=== PATIENT | male | born 2005 | race Hispanic/Latino ===

== ENCOUNTER 2024-08-20 23:19 | Emergency (ER) | payer SELFPAY ==
[~2024-08-20] VITALS: Ht 175.3 cm; Wt 97.5 kg
[2024-08-20 23:20] VITALS: BP 145/91; PULSE 88; RESP 16; TEMP 98.4
--- NOTE | 2024-08-21 00:13 | NUR ---
PT SITTING IN LOBBY IN FRONT OF TRIAGE 1, INTERACTING WELL WITH FAMILY, ON PHONE. NO ACUTE DISTRESS OBSERVED, GOOD CHEST RISE AND FALL
[2024-08-21] MEDS ORDERED: ketOROlac 15MG/ML VIAL (15MG/ML) IV STA (00:28)
--- NOTE | 2024-08-21 01:11 | ERN ---
ED Note History of Present Illness Stated Complaint: BACK PAIN, FALL Chief Complaint: Mechanical Fall Time Seen by MD: 23:35 Time Seen by Midlevel: 23:39 Dictation: 19-YEAR-OLD MALE WITH NO PAST MEDICAL HISTORY COMING IN STATUS POST GROUND LEVEL FALL TWO WEEKS AGO AND NOW COMPLAINING OF LOWER BACK PAIN. DENIES ANY INCONTINENCE, SADDLE PARESTHESIAS, OR UNILATERAL WEAKNESS OF AN LOWER EXTREMITIES. Allergies: Coded Allergies: No Known Allergies (Unverified Allergy, Unknown, 08/20/24) Past Medical History Past Medical History: No Pertinent History Surgical History: Other Surgical History Other: RT LUNG Review of System Dictation CONSTITUTIONAL: NEGATIVE FOR FEVER,CHILLS, AND WEIGHT LOSS EYES: NEGATIVE FOR INJURY, PAIN,REDNESS, AND DISCHARGE ENT: NEGATIVE FOR INJURY,PAIN OR SWELLING CARDIOVASCULAR: NEGATIVE FOR CHEST PAIN, PALPITATIONS, AND EDEMA RESPIRATORY: NEGATIVE FOR SHORTNESS OF BREATH, COUGH, AND WHEEZING, ABDOMEN/GI: NEGATIVE FOR ABDOMINAL PAIN, NAUSEA, VOMITING, DIARRHEA, AND CONSTIPATION BACK: NEGATIVE FOR INJURY AND PAIN : NEGATIVE FOR INJURY, BLEEDING AND DISCHARGE MS/EXTREMITY: NEGATIVE FOR INJURY AND DEFORMITY, COMPLAINING OF LOWER BACK PAIN SKIN: NEGATIVE FOR RASH, AND DISCOLORATION NEURO: NEGATIVE FOR HEADACHE, WEAKNESS, NUMBNESS, TINGLING, AND SEIZURE PSYCH: NEGATIVE FOR SUICIDE IDEATION, HOMICIDAL IDEATION, AND HALLUCINATIONS Review of Systems: was completed Initial Vital Sign VS Vital Signs Date Time Temp Pulse Resp B/P (MAP) Pulse Ox O2 Delivery O2 Flow Rate FiO2 08/20/24 23:20 98.4 88 16 145/91 100 Room Air Physical Exam Dictation GENERAL: AWAKE, ALERT, NAD HEAD/FACE: NORMOCEPHALIC, ATRAUMATIC EYES: PERRL, EOMI, VISION AT BASELINE ENT: ORAL CAVITY CLEAR, TMS CLEAR, NO SIGNS OF INFECTION NECK: TRACHEA MIDLINE, SUPPLE, NO NUCHAL RIGIDITY CARDIOVASCULAR: RRR, NORMAL S1/S2, NO MRGS, NO JVD RESPIRATORY: CTAB, NO RESPIRATORY DISTRESS, NO RALES OR WHEEZES ABDOMEN: SOFT, NON-TENDER, NON-DISTENDED, NORMAL BOWEL SOUNDS, NO GUARDING OR REBOUND. SKIN: WARM, DRY, NORMAL TURGOR, NO RASH MS/EXTREMITY: PULSES EQUAL, NO CYANOSIS, NEUROVASCULAR INTACT, FROM NEURO: COAX4, GCS 15, STRENGTH 5/5, CN 2-12 INTACT, NORMAL CEREBELLAR EXAM, NORMAL GAIT, PSYCH: NORMAL BEHAVIOR, MOOD, AND AFFECT NORMAL ED Course ED Course Orders Procedure Category Date Status Time Lumbar Spine 2-3vws RAD 08/21/24 Taken 00:28 Methocarbamol PHA 08/21/24 Complete (Methocarbamol) 00:28 Ketorolac PHA 08/21/24 Complete Tromethamine 15mg/Ml 00:28 Acetaminophen 500mg PHA 08/21/24 Complete Tab (Tylenol 500mg T 00:28 Current Medications Medications (Trade) Dose Ordered Sig/Donny Route PRN Reason Start Time Stop Time Status Last Admin Dose Admin Acetaminophen (TYLenol 500MG TAB) 1,000 mg ONCE STAT PO 08/21/24 00:28 08/21/24 00:32 DC Ketorolac Tromethamine (toRADol) 15 mg ONCE STAT IV 08/21/24 00:28 08/21/24 00:32 DC Methocarbamol (methoCARBamol) 500 mg ONCE STAT PO 08/21/24 00:28 08/21/24 00:32 DC Vital Signs Date Time Temp Pulse Resp B/P (MAP) Pulse Ox O2 Delivery O2 Flow Rate FiO2 08/20/24 23:20 98.4 88 16 145/91 100 Room Air Medical Decision Making MDM MDM: 19-YEAR-OLD MALE WITH NO PAST MEDICAL HISTORY COMING IN STATUS POST GROUND LEVEL FALL TWO WEEKS AGO AND NOW COMPLAINING OF LOWER BACK PAIN. DENIES ANY INCONTINENCE, SADDLE PARESTHESIAS, OR UNILATERAL WEAKNESS OF AN LOWER EXTR EMITIES. X-RAY OF THE L-SPINE IS NORMAL. DISCUSSED FINDINGS WITH THE PATIENT. EDUCATED PATIENT TO TAKE TYLENOL OR IBUPROFEN [id number] FOR PAIN CONTROL. EDUCATED FOLLOW UP WITH PCP IN 1-2 DAYS. DIFFERENTIAL DIAGNOSIS: MUSCLE SPASM, BACK PAIN, L-SPINE INJURY RATIONALE: TESTS CONSIDERED AND ORDERED SECONDARY TO SHARED DECISION MAKING INCLUDE: PREVIOUS OUTSIDE RECORDS REVIEWED: OLD ER VISITS. RISK OF COMPLICATION AND/OR MORBIDITY OR MORTALITY OF PATIENT MANAGEMENT: NONE MEDICATIONS-PER MEDICATION RECONCILIATION NEED FOR HOSPITALIZATION: PATIENT DOES NOT MEET CRITERIA FOR HOSPITALIZATION. NEED FOR EMERGENCY MAJOR/MINOR SURGERY: NO THERE ARE NO SOCIAL CONCERNS WITH THIS PATIENT. PRESCRIPTION DRUG MANAGEMENT PRESCRIPTIONS WILL INCLUDE SYMPTOMATIC CARE PATIENT'S PRIOR EXTERNAL MEDICAL RECORDS FROM OTHER ER VISITS WERE REVIEWED BY ME INDICATED. PRIOR TESTING AND RESULTS FROM PREVIOUS VISITS WERE REVIEWED. PRIOR TESTS WERE TAKEN INTO ACCOUNT WITH MEDICAL DECISION MAKING AND RESOURCE UTILIZATION, INDEPENDENT HISTORIAN/HISTORIANS WERE USED TO OBTAIN COMPLETE MEDICAL HISTORY. I INDEPENDENTLY INTERPRETED THE TEST THAT WERE PERFORMED, RESULTS WERE REVIEWED BY ME AND CONSIDERED FINDINGS ON RADIOLOGY IF ORDERED. MEDICAL MANAGEMENT AND EXAMINATION INTERPRETATION DISCUSSIONS WERE HAD BY ME WITH OTHER QUALIFIED HEALTHCARE PROFESSIONALS INDICATED FOR THE PATIENT'S CARE. DX & DISP Disposition: Discharge Departure Impression: Primary Impression: Lower back pain Condition: Stable Additional Instructions: TAKE TYLENOL OR IBUPROFEN [id number] FOR PAIN CONTROL. RETURN TO HOSPITAL IF YOU HAVE ANY WORSENING SYMPTOMS. FOLLOW UP WITH YOUR PCP IN 1-2 DAYS. Referrals: SELF,REFERRAL (PCP) Time of Disposition: 01:10 I have reviewed the case, and I agree with, Diagnosis and Plan DANIELLE HAYES NP August 21, 2024 01:11
[2024-08-21] MEDS: acetaMINOPHEN 500 MG TABLET PO STA (01:44)
[2024-08-21] MEDS: ketOROlac 15MG/ML VIAL (15MG/ML) IM ONE (01:45)
[2024-08-21] MEDS: methoCARBamol 500 MG TABLET PO STA (01:45)
--- NOTE | 2024-08-21 08:21 | HMCIMG ---
Exam Type: LUMBAR SPINE 2-3VWS Clinical Information: FALL Comparison: None Findings: Exam of the lumbosacral spine demonstrates no evidence of fracture, subluxation, or significant degenerative change. There is straightening of the spine consistent with spasm. The disc spaces are intact. The facet joints are preserved without significant degenerative changes Bone mineralization is normal. Impression: Lumbar spasm.
== END 2024-08-21 01:49 | disposition home or self-care (01) ==
LOC: EDH 23:19
DX: M54.50 Low back pain, unspecified (principal)
CPT/HCPCS: 99284; 72100; 96372; J1885

== ENCOUNTER 2024-11-07 04:39 | Emergency (ER) | payer OTHER ==
[~2024-11-07] VITALS: Ht 167.6 cm; Wt 96.6 kg
[2024-11-07 05:15] LABS: IMMATURE GRANULOCYTE ABSOLUTE 0.02 K/uL (0-1); NUCLEATED RED BLOOD CELLS 0.0 % (0.0-0.19); PLATELET COUNT (AUTO) 255 K/uL (130-400); RED BLOOD CELL COUNT(AUTO) 4.63 MIL/uL (4.50-6.20); RED CELL DISTRIBUTION WIDTH 12.7 % (11.0-15.5); WHITE BLOOD COUNT (AUTO) 8.7 K/uL (4.8-10.8)
[2024-11-07 05:24] LABS: CREATININE 1.0 mg/dL (0.5-1.3); GLOMERULAR FILTR. RATE CALC 110.0 mL/min (>90); GLUCOSE,RANDOM 98.0 mg/dL (70-105); SODIUM SERUM 137.0 mmol/L (136-145); UREA NITROGEN, BLOOD 10.0 mg/dL (7-18)
[2024-11-07] MEDS: 0.9%NACL 1000ML 1,000 ML IV ONE (05:28)
[2024-11-07 05:33] LABS: ALCOHOL, BLOOD 15.0 mg/dL (0-10); ASPARTATE AMINOTRANSFERASE 19.0 U/L (10-37); TOTAL PROTEIN, SERUM 7.0 g/dL (6.0-8.3)
--- NOTE | 2024-11-07 05:49 | ERN ---
General Chief Complaint: Syncope Stated Complaint: SYNCOPE Time Seen by MD: 05:18 Source: patient History of Present Illness Initial Comments Healthy 19-year-old male who was partying for quite a long time last night smoking cigarettes drinking alcohol ingesting THC. Early this morning he blacked out and his friends needed to support him. He comes in to the ED a little freaked out about the events and while talking to me is quivering just a little bit. He is complaining of chest pain but no diarrhea nausea vomiting or constipation constipation or urine symptoms. Allergies: Coded Allergies: No Known Allergies (Unverified Allergy, Unknown, 08/20/24) Past Medical History Past Medical History: No Pertinent History Past Surgical History: Other Surgical History Other: RT LUNG Constitutional: (-) chills, (-) diaphoresis, (-) fever, (-) malaise, (-) weakness, (-) other documentation EENTM: (-) eye pain, (-) blurred vision, (-) tearing, (-) double vision, (-) ear pain, (-) ear discharge, (-) nose pain, (-) nose congestion, (-) throat pain, (-) Throat swelling, (-) mouth pain, (-) tooth pain, (-) mouth swelling, (-) other documentation Respiratory: (-) cough, (-) orthopnea, (-) short of breath, (-) stridor, (-) wheezing, (-) other documentation Cardiovascular: (+) chest pain Gastrointestinal/Abdominal: (-) nausea, (-) vomiting, (-) diarrhea, (-) abdominal pain, (-) abdominal distention, (-) constipation, (-) rectal bleeding, (-) dark stool/melena, (-) other documentation Genitourinary: (-) penile discharge, (-) dysuria, (-) frequency, (-) hematuria, (-) pain, (-) other documentation Musculoskeletal: (+) Neck pain, (+) back pain, (+) Flank Pain, (+) joint pain, (+) joint swelling, (+) muscle pain, (+) muscle stiffness, (+) gout, (+) other documentation Neuro: (-) altered mental status, (-) headache, (-) syncope, (-) paralysis, (-) numbness, (-) seizure, (-) pre-existing deficit, (-) tremors, (-) weakness, (-) dizziness, (-) slurred speech, (-) vertigo, (-) other documentation Physical Exam General Appearance: (+) moderate distress Orientation: (+) alert Head/Face Trauma: No Eye: bilateral eye normal inspection, bilateral eye PERRL, bilateral eye EOMI Ear, Nose, Throat: (+) hearing grossly normal, (+) normal ENT inspection, (+) moist mucous membraine Neck: (+) normal inspection, (+) supple, (+) full range of motion Respiratory: (+) chest non-tender, (+) lungs clear, (+) well ventilated Heart: (+) regular, (+) no gallop Vascular: (+) no edema, (+) normal peripheral pulse Gastrointestinal: (+) soft, (+) non-tender, (+) no organomegaly, (+) bowel sound present Results Laboratory and Microbiology Lab and Micro Result Laboratory Tests Test 11/07/24 04:42 White Blood Count 8.7 K/uL (4.8-10.8) Red Blood Count 4.63 MIL/uL (4.50-6.20) Hemoglobin 15.2 g/dL (14.0-18.0) Hematocrit 42.3 % (42-54) Mean Corpuscular Volume 91.4 fL (80-100) Mean Corpuscular Hemoglobin 32.8 pg (27.0-33.0) Mean Corpuscular Hemoglobin Concent 35.9 g/dL (32.0-36.0) Red Cell Distribution Width 12.7 % (11.0-15.5) Platelet Count 255 K/uL (130-400) Mean Platelet Volume 11.5 fL (7.5-10.5) H Immature Granulocyte % (Auto) 0.2 % (0-1) Neutrophils (%) (Auto) 40.3 % (40.0-77.0) Lymphocytes (%) (Auto) 48.9 % (21.0-51.0) Monocytes (%) (Auto) 8.4 % (3.0-13.0) Eosinophils (%) (Auto) 1.7 % (0.0-8.0) Basophils (%) (Auto) 0.5 % (0.0-5.0) Neutrophils # (Auto) 3.5 K/uL (1.8-7.7) Lymphocytes # (Auto) 4.2 K/uL (1.0-4.8) Monocytes # (Auto) 0.7 K/uL (0.1-1.0) Eosinophils # (Auto) 0.15 K/uL (0.00-0.70) Basophils # (Auto) 0.04 K/uL (0.00-0.20) Absolute Immature Granulocyte (auto 0.02 K/uL (0-1) Nucleated Red Blood Cells 0.0 % (0.0-0.19) Sodium Level 137 mmol/L (136-145) Potassium Level 3.2 mmol/L (3.5-5.1) L Chloride Level 101 mmol/L (101-111) Carbon Dioxide Level 25 mmol/L (21-32) Blood Urea Nitrogen 10 mg/dL (7-18) Creatinine 1.0 mg/dL (0.5-1.3) Glomerular Filtration Rate Calc 110 mL/min (>90) Random Glucose 98 mg/dL (70-105) Total Calcium 8.9 mg/dL (8.5-10.1) Total Bilirubin 2.8 mg/dL (0.2-1.0) H Aspartate Amino Transf (AST/SGOT) 19 U/L (10-37) Alanine Aminotransferase (ALT/SGPT) 25 U/L (12-78) Alkaline Phosphatase 75 U/L (50-136) Troponin I High Sensitivity < 4 ng/L (4-75) L Total Protein 7.0 g/dL (6.0-8.3) Albumin 4.0 g/dL (3.5-5.0) Serum Alcohol 15 mg/dL (0-10) H MDM MDM: Differential diagnosis: Patient could have simply overindulged in alcohol and THC consumption. We will order labs to make sure he is not dehydrated check his alcohol level and observe him in the ED. at this point I do not see a need for a CT scan of his head Rationale: Tests considered and ordered secondary to shared decision making include: Previous outside records reviewed: Old ER visits. Risk of complication and/or morbidity or mortality of patient management: None Medications-Per medication reconciliation Need for hospitalization: Patient does meet criteria for hospitalization. Need for emergency major/minor surgery: No There are no social concerns with this patient. Prescription drug management Prescriptions will include symptomatic care Patient's prior external medical records from other ER visits were reviewed by me as indicated. Prior testing and results from previous visits were reviewed. Prior tests were taken into account with medical decision making and resource utilization, independent historian/historians were used to obtain complete medical history. I independently interpreted the test that were performed, results were reviewed by me and considered findings on radiology if ordered. Patient's chest x-ray is normal. Patient's CBC is normal. Patient's chemistry panel shows a total bilirubin of 2.8 other LFTs are normal cardiac enzymes are normal patient's potassium is little low. Toxicology shows a low alcohol level. I wrote for 50 mEq of potassium. Patient can be discharged from the hospital. ED Course Orders Procedure Category Date Status Time Cbc With Differential LAB 11/07/24 Complete 05:03 Urinalysis Profile LAB 11/07/24 Logged 05:03 Chest 1vw RAD 11/07/24 Taken 05:03 12 Lead Ekg Tracing- EKG 11/07/24 Logged Technical 05:03 0.9%Nacl 1000ml (Ns PHA 11/07/24 Complete 1000ml) 05:30 Drug Screen Urine LAB 11/07/24 Logged 05:03 Comprehensive LAB 11/07/24 Complete Metabolic Panel 05:03 Troponin I High LAB 11/07/24 Complete Sensitivity 05:03 Alcohol, Blood LAB 11/07/24 Complete 04:42 Current Medications Medications (Trade) Dose Ordered Sig/Donny Route PRN Reason Start Time Stop Time Status Last Admin Dose Admin Sodium Chloride 1,000 ml @ 0 mls/hr ONCE ONCE IV 11/07/24 05:30 11/07/24 05:31 DC 11/07/24 05:28 Vital Signs Date Time Temp Pulse Resp B/P (MAP) Pulse Ox O2 Delivery O2 Flow Rate FiO2 11/07/24 04:40 97.9 47 16 94/43 96 Room Air DX & DISP Disposition: Discharge Departure Impression: Primary Impression: Syncope Additional Impressions: Polysubstance abuse, Bilirubinemia Condition: Stable Additional Instructions: Your chest x-ray is normal, you have no signs of an infection, you do have an elevated bilirubin which reflects your liver function. You need to see your primary care doctor and get a referral to a GI doctor to have your liver evaluated. In the meantime I strongly recommend you stop vaping nicotine and stop ingesting large amounts of THC and alcohol as you may end up repeating the events that brought you to this hospital. Referrals: SELF,REFERRAL (PCP) RHONA MASON MD Nov 07, 2024 05:48
--- NOTE | 2024-11-07 06:52 | HMCIMG ---
EXAM: CR Chest, 1 View. CLINICAL HISTORY: SYNCOPE COMPARISON: None provided. FINDINGS: LUNGS: The lungs show no infiltrate or other acute finding. PLEURAL SPACES: No pleural effusion or pneumothorax. MEDIASTINUM: The cardiomediastinal silhouette is within normal limits. BONES: No aggressive appearing osseous lesion seen. IMPRESSION: No acute cardiopulmonary pathology is evident. /Willard
--- NOTE | 2024-11-07 07:25 | EKG ---
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
[2024-11-07 07:57] LABS: APPEARANCE,URINE CLEAR (CLEAR); GLUCOSE, URINE (UA) NEGATIVE (NEGATIVE); LEUKOCYTE ESTERASE ,URINE NEGATIVE Leu/uL (NEGATIVE); NITRATE,URINE NEGATIVE (NEGATIVE); OCCULT BLOOD,URINE NEGATIVE (NEGATIVE)
[2024-11-07 07:59] LABS: ADD UA MICROSCOPIC NO
[2024-11-07 08:03] LABS: AMPHET/METH SCREEN,URINE NEGATIVE (NEGATIVE); BARBITURATE SCREEN, URINE NEGATIVE (NEGATIVE); CANNABINOID SCREEN,URINE POSITIVE (NEGATIVE); COCAINE SCREEN,URINE NEGATIVE (NEGATIVE)
[2024-11-07 08:16] VITALS: BP 109/68; PULSE 68; RESP 17; TEMP 98.3; O2SAT 96
--- NOTE | 2024-11-07 08:34 | NUR ---
PT AAOX4, STABLE NO DISTRESS VITALS WNL NO C/O PAIN NO NEW RX GIVEN NOW, PT IV REMOVED, INSTRUCTIONS GIVEN FOR HOME. PT DRIVEN HOME BY GIRLFRIEND.
== END 2024-11-07 08:36 | disposition home or self-care (01) ==
LOC: EDH 04:39
DX: R55 Syncope and collapse (principal); F19.10 Other psychoactive substance abuse, uncomplicated; F17.210 Nicotine dependence, cigarettes, uncomplicated
CPT/HCPCS: 99285; 96360; 96361; 71045; 84484; 80053; 80305; 85025; 36415; 93005; 81003; J7030